=== PATIENT | male | born 1980 | race Hispanic/Latino ===

== ENCOUNTER 2019-01-01 21:26 | Emergency (ER) | payer SELFPAY ==
[2019-01-01 21:40] VITALS: BP 127/81; PULSE 59; RESP 16; TEMP 36.6; O2SAT 99
--- NOTE | 2019-01-01 21:51 | ED.WOUNDLAC ---
HPI - Wound/Laceration General Chief Complaint: Wound/Laceration Stated Complaint: laceration to pinky finger left hand Time Seen by Provider: 01/01/19 21:43 Source: patient Mode of arrival: Ambulatory Limitations: no limitations History of Present Illness HPI narrative: 38-year-old male here for evaluation of an injury he sustained to his left little finger. He states that he cut the left little finger with a pair of scissors. Does not know when his last tetanus shot was. He wrapped with a bandage prior to arrival. Review of Systems Constitutional Constitutional: Denies fever(s) Musculoskeletal Musculoskeletal: Denies myalgias and Denies arthralgias Integumentary/Breasts Comments: Cut to left finger Hematologic/Lymphatic Hematologic/Lymphatic: Denies easy bleeding and Denies easy bruising [facility] Medical History Patient denies medical problems (Acute) Social History marital status: lives independently: Yes Social History marital status: lives independently: Yes Exam Initial Vital Signs Initial Vital Signs: Vital Signs Temperature 97.9 F 01/01/19 21:40 Pulse Rate 59 L 01/01/19 21:40 Respiratory Rate 16 01/01/19 21:40 Blood Pressure 127/81 01/01/19 21:40 Pulse Oximetry 99 01/01/19 21:40 Resp Effort & Inspection: normal respiratory effort Cardio Pulses: radial pulses present on the left Skin Other: Patient with a superficial avulsion to the pad of the left little finger. No deep structures involved. Does not involve the nail. Neuro Sensory Exam: no sensory deficits noted Extrem General: capillary refill normal Course Orders Ordered: Discontinued Medications Diphtheria/Tetanus/Acell Pertussis (Adacel) 0.5 ml IM .ONCE ONE Stop: 01/01/19 21:52 Last Admin: 01/01/19 21:58 Dose: 0.5 ml Documented by: TY Vital Signs Vital signs: Vital Signs - 8 hr 01/01/19 21:40 Temperature 97.9 F Pulse Rate 59 L Respiratory Rate 16 Blood Pressure 127/81 Pulse Oximetry 99 MDM - Wound/Laceration MDM Narrative Medical decision making narrative: Patient's tetanus was updated. The avulsion is extremely superficial on the pad of his little finger. It was bleeding. Surgicel was placed over the area with a Telfa and then tube gauze. No indication for suturing given the type of wound. Patient was given care instructions and return precautions. He expressed understanding and agreement with plan. Discharge Plan Departure Patient Disposition: Home Clinical Impression: Avulsion of skin Discharge Date/Time: 01/01/19 22:05 Instructions: Minor Wounds (Alternative Therapy) Activity Restrictions/Additional Instructions: Keep the current bandage on for the next 24 hours. After that you can take it off. You can then use soap and water and wash your hands like normal. Your tetanus shot was updated this evening. Return to the emergency department for any new or worsening symptoms Stand Alone Forms: Work Release Note
[2019-01-01] MEDS: TET,DIPH,PERTUSS(ACELL),VAC/PF 0.5 ML SYRINGE IM (21:58)
== END 2019-01-01 22:05 | disposition home or self-care (01) ==
PROVIDERS: Emergency Provider Emergency Medicine
DX: S61.217A Laceration without foreign body of left little finger without damage to nail, initial encounter (principal); W27.2XXA Contact with scissors, initial encounter
CPT/HCPCS: 90471; 99283; 90715

== ENCOUNTER → 2022-12-18 09:54 | Outpatient (CLI) | payer OTHER, SELFPAY ==
--- NOTE | 2022-12-18 | DI.RAD.S_ITS ---
PROCEDURE: XR CHEST 2V INDICATIONS: POSITIVE IGRA RESULT TECHNIQUE: 2 views of the chest were acquired. COMPARISON: None. FINDINGS: Surgical changes and devices: None. Lungs and pleura: Lungs are clear. No pleural effusions or pneumothorax. Mediastinum: Mediastinal contours are normal. Heart size is normal. Bones and chest wall: No suspicious bony abnormalities. Soft tissues appear unremarkable. IMPRESSION: Normal two view chest x-ray. No evidence of active tuberculosis Approved by: Phil Andrade M.D. on 12/18/2022 at 15:51
== END ==
PROVIDERS: PCP Family Medicine; Referring Provider Family Medicine; Visit Provider Family Medicine
DX: R76.12 Nonspecific reaction to cell mediated immunity measurement of gamma interferon antigen response without active tuberculosis (principal)
CPT/HCPCS: 71046

== ENCOUNTER → 2025-02-01 12:18 | Outpatient (CLI) | payer OTHER, SELFPAY ==
--- NOTE | 2025-02-01 12:24 | DI.RAD.S_ITS ---
PROCEDURE: XR CHEST 1V
== END ==
PROVIDERS: PCP Family Medicine; Referring Provider Family Medicine; Visit Provider Family Medicine
DX: R76.12 Nonspecific reaction to cell mediated immunity measurement of gamma interferon antigen response without active tuberculosis (principal)
CPT/HCPCS: 71045